=== PATIENT | female | born 1975 | race Caucasian/White ===

== ENCOUNTER 2017-05-20 00:10 | Emergency (ER) | payer OTHER ==
[~2017-05-20] VITALS: Ht 160 cm; Wt 50.3 kg
[2017-05-20 00:50] VITALS: BP 123/65
[2017-05-20] MEDS: IBUPROFEN 600 MG TAB PO ONE (01:30)
[2017-05-20 03:30] VITALS: BP 121/73
== END 2017-05-20 03:30 | disposition home or self-care (01) ==
LOC: MED 00:10
DX: S90.31XA Contusion of right foot, initial encounter (principal); W20.8XXA Other cause of strike by thrown, projected or falling object, initial encounter; Y93.89 Activity, other specified; Y92.89 Other specified places as the place of occurrence of the external cause; Y99.8 Other external cause status
CPT/HCPCS: 73630; 99284; Q0092